=== PATIENT | female | born 1940 | race Two or more races ===

== ENCOUNTER 2019-04-07 06:16 | Inpatient (IN) | payer OTHER ==
[~2019-04-07] VITALS: Ht 152.4 cm; Wt 29.5 kg
[~2019-04-07 06:16] MED LIST: ACIDO FOLICO; ALENDRONATE SODI5 MG; FEOSOL1 TAB; FOLIC ACID1 MG; SULFATO FERROSO; SYNTHROID150 MCG PO; VIT D; VITAMIN D22000 UNIT
[2019-04-07] MEDS ORDERED: BREO ELLIPTA 21 EACH (06:36)
[2019-04-15] MEDS ORDERED: SIMETHICONE80 MG PO (16:38)
[2019-04-15] MEDS ORDERED: ACID CONTROLLER20 MG PO (16:39)
== END 2019-04-15 16:54 | disposition home or self-care (01) | DRG 194 ==
LOC: ER 06:16 → SEC-K 15:26 → SURH 15:26
PROVIDERS: ADMIT Student in an Organized Health Care Education/Training Program
PROC: BB24ZZZ Computerized Tomography (CT Scan) of Bilateral Lungs (ICD-10-PCS; principal; 2019-04-07)
PROC: 3E0F7GC Introduction of Other Therapeutic Substance into Respiratory Tract, Via Natural or Artificial Opening (ICD-10-PCS; 2019-04-07)
PROC: 4A033R1 Measurement of Arterial Saturation, Peripheral, Percutaneous Approach (ICD-10-PCS; 2019-04-07)
PROC: 8E0ZXY6 Isolation (ICD-10-PCS; 2019-04-08)
DX: J10.00 Influenza due to other identified influenza virus with unspecified type of pneumonia (principal); J44.1 Chronic obstructive pulmonary disease with (acute) exacerbation; B37.0 Candidal stomatitis; E03.8 Other specified hypothyroidism; I11.9 Hypertensive heart disease without heart failure; R13.11 Dysphagia, oral phase; F41.1 Generalized anxiety disorder; Z88.0 Allergy status to penicillin

== ENCOUNTER 2020-12-31 08:43 | Outpatient (CLI) | payer OTHER ==
[~2020-12-31 08:43] MED LIST changes: +ACID CONTROLLER20 MG PO; +BREO ELLIPTA 21 EACH; +SIMETHICONE80 MG PO
== END 2020-12-31 08:49 | disposition home or self-care (01) ==
LOC: SONOGRAMA 08:43
PROVIDERS: ATTEND Pathology Anatomic Pathology & Clinical Pathology
DX: E04.1 Nontoxic single thyroid nodule (principal)

== ENCOUNTER 2021-07-20 09:36 | Outpatient (CLI) | payer OTHER | END 2021-07-20 09:46 | disposition home or self-care (01) | LOC: RX STUDY 09:36 | PROVIDERS: ATTEND Internal Medicine | DX: R13.12 Dysphagia, oropharyngeal phase (principal); K63.4 Enteroptosis ==

== ENCOUNTER 2021-07-20 11:22 | Outpatient (CLI) | payer OTHER | END 2021-07-20 11:23 | disposition home or self-care (01) | LOC: LAB 11:22 | PROVIDERS: ATTEND Radiology Diagnostic Radiology | DX: Z00.8 Encounter for other general examination (principal) ==

== ENCOUNTER 2021-07-23 08:23 | Outpatient (CLI) | payer OTHER | END 2021-07-23 08:32 | disposition home or self-care (01) | LOC: TOM 08:23 | PROVIDERS: ATTEND Otolaryngology Plastic Surgery within the Head & Neck | DX: R13.19 Other dysphagia (principal) | CPT/HCPCS: 70492; Q9965 ==

== ENCOUNTER 2024-03-16 15:58 | Inpatient (IN) | payer OTHER ==
[~2024-03-16] VITALS: Ht 152.4 cm; Wt 29.9 kg
[2024-03-16] MEDS ORDERED: HYDROCHLOROTH12.5 M2 PO (16:48)
[2024-03-16] MEDS ORDERED: AMLODIPINE BESYL5 MG PO (16:57)
[2024-03-16] MEDS ORDERED: CARVEDILOL3.125 M1 PO (16:57)
[2024-03-16] MEDS ORDERED: LOSARTAN POTASS25 MG PO (16:57)
[2024-03-16] MEDS ORDERED: PANTOPRAZOLE SO40 MG PO (16:58)
[2024-03-16 17:45] LABS: HEMATOCRIT 33.4 % (36.0-45.00); HEMOGLOBIN 10.5 g/dL (12.0-15.00); MEAN CELL VOLUME 95.6 fL (80.00-100.00); MEAN CORPUSCULAR HGB CONC 31.3 g/dl (32.0-36.0); PLATELET COUNT 229 K/uL (150-450)
[2024-03-16 17:57] LABS: BLOOD UREA NITROGEN 8 mg/dL (7-18); BUN CREA RATIO 22 (7.0-25.0); CALCIUM 9.2 mg/dL (8.5-10.1); CHLORIDE 93 mmol/L (98-107); CREATININE SERUM 0.36 mg/dL (0.55-1.02); GFR 171.73; GLUCOSE FASTING 103 mg/dL (65-100); OSMOLALITY SERUM 274 MOSM/KG (275-295); POTASSIUM 4.05 mEq/L (3.5-5.1); SODIUM 138 mmol/L (136-145)
[2024-03-16 18:09] LABS: URINE APPEARANCE Clear; URINE BILIRRUBIN Negative (NEGATIVE); URINE BLOOD Negative; URINE COLOR Yellow; URINE GLUCOSE Negative (NEGATIVE); URINE KETONE Negative (NEGATIVE); URINE LEUKOCYTE Negative; URINE NITRATE Negative; URINE PROTEIN 30 (NEGATIVE)
[2024-03-16 18:13] LABS: URINE BACTERIA 133.5 uL (0.0-1933); URINE EPITHELIAL CELLS 25.9 uL (0.0-38.8); URINE RBC 90.5 uL (0.0-20.8); URINE WBC 16.9 uL (0.0-23.2)
[2024-03-16 18:20] LABS: CARBON DIOXIDE 50 mEq/L (21-32)
[2024-03-16 21:33] LABS: ABG PH 7.387 (7.35-7.45); ABG PO2 41.9 mmHg (80-100); ABG pCO2 71.6 mmHg (35-45); BASE EXCESS 13.4 mmol/l; SaO2 78.7 %
[2024-03-16 21:34] LABS: BICARBONATE 42.1 mmol/l (23-25); Tco2 44.3 mmol/l; allen test SATISFACTORY; puncture site CAPILAR
[2024-03-16 21:35] LABS: o2 21 %
[2024-03-16] MEDS ORDERED: levoFLOXacin IN DEXTROSE 5 % 150 ML IV SCH (23:36)
[2024-03-16] MEDS ORDERED: BUDESONIDE 0.5 MG/2 ML AMPUL.NEB IH SCH (23:37)
[2024-03-16] MEDS ORDERED: ONDANSETRON HCL 4 MG in 0.9 % SODIUM CHLORIDE 50 ML IV PRN (23:45)
[2024-03-16] MEDS ORDERED: ACETAMINOPHEN 500 MG GEL..CAP PO PRN (23:45)
[2024-03-17] MEDS ORDERED: levoFLOXacin IN DEXTROSE 5 % 5 MG/ML PIGGYBAG IV ONE ×2 (00:15→16:42)
[2024-03-17] MEDS ORDERED: IPRATROPIUM BROMIDE 0.5 MG/2.5 ML AMPUL.NEB IH ONE ×2 (00:20→08:41)
[2024-03-17] MEDS ORDERED: IPRATROPIUM BROMIDE 0.5 MG/2.5 ML AMPUL.NEB IH SCH (01:00)
[2024-03-17 01:15] LABS: INR 1.09; PARTIAL THROMBOPLASTIN TIME 28.2 SECONDS (22.0-34.0); PROTHROMBIN TIME 11.4 SECONDS (9.0-11.5)
[2024-03-17 01:53] LABS: ABG PH 7.387 (7.35-7.45); ABG PO2 93.6 mmHg (80-100); BASE EXCESS 15.3 mmol/l; BICARBONATE 44.6 mmol/l (23-25); SaO2 97.5 %; Tco2 46.9 mmol/l
[2024-03-17 03:15] LABS: ABG pCO2 75.7 mmHg (35-45); o2 30 %
[2024-03-17 03:16] LABS: allen test SATISFACTORY; puncture site RADIAL LEFT
[2024-03-17] MEDS ORDERED: LEVOTHYROXINE SODIUM 75 MCG TABLET PO SCH (06:00)
[2024-03-17] MEDS ORDERED: BUDESONIDE 0.5 MG/2 ML AMPUL.NEB IH ONE (08:41)
[2024-03-17] MEDS ORDERED: CHLORHEXIDINE GLUCONATE 120 ML BOTTLE TOP ONE (08:53)
[2024-03-17] MEDS ORDERED: FAMOTIDINE/PF 20 MG in 0.9 % SODIUM CHLORIDE 8 ML IV PUSH SCH (09:00)
[2024-03-17] MEDS ORDERED: ENOXAPARIN SODIUM 40 MG/0.4 ML SYRINGE SUBCUTANEO SCH (09:00)
[2024-03-17] MEDS ORDERED: IRON FUM,PS/FOLIC/BCOMP,C NO.9 1 CAP CAPSULE PO SCH (09:00)
[2024-03-17 09:14] LABS: ABG PH 7.435 (7.35-7.45); ABG PO2 80.9 mmHg (80-100); ABG pCO2 59.1 mmHg (35-45); BASE EXCESS 11.8 mmol/l; BICARBONATE 38.8 mmol/l (23-25); SaO2 96.6 %
[2024-03-17 09:15] LABS: Tco2 10.6 mmol/l
[2024-03-17 09:16] LABS: allen test SATISFACTORY; o2 30 %; puncture site RADIAL RIGHT
[2024-03-17] MEDS ORDERED: AMLODIPINE BESYLATE 5 MG TABLET PO SCH ×2 (09:42→21:00)
[2024-03-17] MEDS ORDERED: CARVEDILOL 3.125 MG TABLET PO SCH (09:43)
[2024-03-17] MEDS ORDERED: HYDROCHLOROTHIAZIDE 12.5 MG CAPSULE PO SCH (09:44)
[2024-03-17] MEDS ORDERED: LOSARTAN POTASSIUM 25 MG TABLET PO SCH (09:45)
[2024-03-17] MEDS ORDERED: LOSARTAN POTASSIUM 50 MG TABLET PO SCH (17:00)
[2024-03-17] MEDS ORDERED: levoFLOXacin IN DEXTROSE 5 % 150 ML IV SCH (17:00)
[2024-03-18 06:35] LABS: HEMATOCRIT 31.1 % (36.0-45.00); HEMOGLOBIN 10.5 g/dL (12.0-15.00); MEAN CELL VOLUME 88.3 fL (80.00-100.00); MEAN CORPUSCULAR HEMOGLOBIN 29.9 pg (27.00-32.0); MEAN CORPUSCULAR HGB CONC 33.8 g/dl (32.0-36.0); PLATELET COUNT 221 K/uL (150-450); RED BLOOD COUNT 3.52 M/uL (4.00-6.00); RED CELL DISTRIBUTION WIDTH 12.9 % (11.5-14.5)
[2024-03-18 07:00] LABS: ALBUMIN 3.3 gm/dL (3.4-5.0); BILIRUBIN TOTAL 0.7 mg/dL (0.3-1.2); CALCIUM 7.6 mg/dL (8.5-10.1); CREATININE SERUM 0.4 mg/dL (0.55-1.02); GFR 152.07; GLOBULINA 4.6 G/DL (2.4-3.5); MAGNESIUM 1.5 mg/dL (1.8-2.4); PHOSPHOROUS 2.1 mg/dL (2.5-4.9); POTASSIUM 3.28 mEq/L (3.5-5.1); TOTAL PROTEIN 7.9 gm/dL (6.4-8.2)
[2024-03-18 09:30] LABS: ABG PH 7.452 (7.35-7.45); ABG PO2 114.4 mmHg (80-100); ABG pCO2 49.8 mmHg (35-45)
[2024-03-18 09:31] LABS: BASE EXCESS 8.5 mmol/l; SaO2 98.8 %; Tco2 35.5 mmol/l; allen test NO SATISFACTORY; o2 30 %; puncture site RADIAL LEFT
[2024-03-18] MEDS ORDERED: MAGNESIUM SULFATE IN WATER 4GM/50ML PIGGYBAG IV STA (09:51)
[2024-03-18] MEDS ORDERED: SODIUM PHOS,M-BASIC-D-BASIC 3 MMOL/ML VIAL IV SCH ×2 (09:52→13:00)
[2024-03-18] MEDS ORDERED: POTASSIUM BICARBONATE/CIT AC 25 MEQ TABLET.EFF PO SCH (09:53)
[2024-03-18] MEDS ORDERED: POTASSIUM CHLORIDE IN WATER 100 ML IV ONE (10:00)
[2024-03-18] MEDS ORDERED: 0.9 % SODIUM CHLORIDE 100 ML IV SCH (10:00)
[2024-03-18] MEDS ORDERED: MAGNESIUM SULFATE IN WATER 4 GM/100 ML PIGGYBACK IV STA (10:03)
[2024-03-18] MEDS ORDERED: CARVEDILOL 6.25 MG TABLET PO SCH (17:00)
[2024-03-19 05:33] LABS: ABG PH 7.328 (7.35-7.45)
[2024-03-19 05:34] LABS: ABG PO2 117.8 mmHg (80-100); ABG pCO2 66.3 mmHg (35-45); BASE EXCESS 5.6 mmol/l; SaO2 98.3 %; Tco2 36.1 mmol/l
[2024-03-19 05:35] LABS: allen test SATISFACTORY; o2 50 %; puncture site RADIAL RIGHT
[2024-03-19 07:11] LABS: HEMATOCRIT 26.6 % (36.0-45.00); HEMOGLOBIN 9.1 g/dL (12.0-15.00); MEAN CELL VOLUME 89.7 fL (80.00-100.00); MEAN CORPUSCULAR HEMOGLOBIN 30.6 pg (27.00-32.0); MEAN CORPUSCULAR HGB CONC 34.1 g/dl (32.0-36.0); PLATELET COUNT 175 K/uL (150-450); RED BLOOD COUNT 2.97 M/uL (4.00-6.00); RED CELL DISTRIBUTION WIDTH 12.7 % (11.5-14.5)
[2024-03-19 07:39] LABS: ALBUMIN 2.4 gm/dL (3.4-5.0); ALKALINE PHOSPHATASE 48 U/L (50-136); ALT/SGPT 17 U/L (12-78); AST/SGOT 29 U/L (15-37); BILIRUBIN TOTAL 0.41 mg/dL (0.3-1.2); BLOOD UREA NITROGEN 9 mg/dL (7-18); CARBON DIOXIDE 33 mEq/L (21-32); CHLORIDE 93 mmol/L (98-107); GLOBULINA 3.1 G/DL (2.4-3.5); GLUCOSE FASTING 76 mg/dL (65-100); OSMOLALITY SERUM 262 MOSM/KG (275-295); SODIUM 132 mmol/L (136-145); TOTAL PROTEIN 5.5 gm/dL (6.4-8.2)
[2024-03-19 08:07] LABS: ANION GAP 9 (10.0-20.0); BUN CREA RATIO 60 (7.0-25.0); GFR 471.66
[2024-03-19 08:08] LABS: CALCIUM 5.8 mg/dL (8.5-10.1); CREATININE SERUM < 0.15 mg/dL (0.55-1.02); PHOSPHOROUS 8.3 mg/dL (2.5-4.9)
[2024-03-19 08:09] LABS: POTASSIUM 2.63 mEq/L (3.5-5.1)
[2024-03-19] MEDS ORDERED: levoFLOXacin IN DEXTROSE 5 % 150 ML IV SCH (09:00)
[2024-03-19] MEDS ORDERED: POTASSIUM BICARBONATE/CIT AC 25 MEQ TABLET.EFF PO SCH (10:05)
[2024-03-19] MEDS ORDERED: POTASSIUM CHLORIDE IN WATER 100 ML IV NR ×2 (10:15→17:00)
[2024-03-19] MEDS ORDERED: POTASSIUM CHLORIDE IN WATER 40 MEQ/100 ML PIGGYBAG IV ONE (10:44)
[2024-03-19 12:18] LABS: GFR 338.41
[2024-03-19 12:19] LABS: CALCIUM 6.5 mg/dL (8.5-10.1); CREATININE SERUM 0.2 mg/dL (0.55-1.02); POTASSIUM 2.69 mEq/L (3.5-5.1)
[2024-03-19] MEDS ORDERED: CALCIUM GLUCONATE 100 MG/ML VIAL IV ONE (13:00)
[2024-03-19] MEDS ORDERED: IPRATROPIUM BROMIDE 0.5 MG/2.5 ML AMPUL.NEB IH ONE (16:47)
[2024-03-19] MEDS ORDERED: AMINO ACIDS 4.25 %/DEXTROSE 5% 1,000 ML PERIFERAL SCH (17:00)
[2024-03-19 17:19] LABS: ANION GAP 6 (10.0-20.0); BLOOD UREA NITROGEN 6 mg/dL (7-18); CALCIUM 7.2 mg/dL (8.5-10.1); CARBON DIOXIDE 34 mEq/L (21-32); CHLORIDE 94 mmol/L (98-107); CHOL HDL RATIO 2.3 (0-5.0); CHOLESTEROL 164 mg/dL (0-200); GLUCOSE FASTING 75 mg/dL (65-100); HDL 72 mg/dl (40-60); LDL 74 mg/dl (0-130); OSMOLALITY SERUM 252 MOSM/KG (275-295); SODIUM 127 mmol/L (136-145); TRIGLYCERIDES 88 mg/dL (0-150); VLDL 17 (0-39)
[2024-03-19 17:36] LABS: BUN CREA RATIO 40 (7.0-25.0); GFR 471.66
[2024-03-19 17:39] LABS: POTASSIUM 7.03 mEq/L (3.5-5.1)
[2024-03-19 18:31] LABS: CREATININE SERUM < 0.15 mg/dL (0.55-1.02)
[2024-03-19 18:38] LABS: ANION GAP 8 (10.0-20.0); BLOOD UREA NITROGEN 6 mg/dL (7-18); CARBON DIOXIDE 34 mEq/L (21-32); CHLORIDE 92 mmol/L (98-107); GLUCOSE FASTING 75 mg/dL (65-100); OSMOLALITY SERUM 257 MOSM/KG (275-295); POTASSIUM 3.72 mEq/L (3.5-5.1); SODIUM 130 mmol/L (136-145)
[2024-03-19 18:39] LABS: BUN CREA RATIO 40 (7.0-25.0); CREATININE SERUM < 0.15 mg/dL (0.55-1.02); GFR 471.66
[2024-03-19] MEDS ORDERED: FAT EMULSIONS 250 ML IV SCH (21:00)
[2024-03-20 06:37] LABS: HEMATOCRIT 26.6 % (36.0-45.00); MEAN CELL VOLUME 88.4 fL (80.00-100.00); MEAN CORPUSCULAR HGB CONC 33.9 g/dl (32.0-36.0); PLATELET COUNT 183 K/uL (150-450); RED BLOOD COUNT 3.01 M/uL (4.00-6.00); RED CELL DISTRIBUTION WIDTH 13.1 % (11.5-14.5)
[2024-03-20 07:27] LABS: ALBUMIN 2.3 gm/dL (3.4-5.0); ALKALINE PHOSPHATASE 43 U/L (50-136); ALT/SGPT 18 U/L (12-78); ANION GAP 5 (10.0-20.0); AST/SGOT 27 U/L (15-37); BILIRUBIN TOTAL 0.24 mg/dL (0.3-1.2); BLOOD UREA NITROGEN 14 mg/dL (7-18); CARBON DIOXIDE 35 mEq/L (21-32); CHLORIDE 90 mmol/L (98-107); GLOBULINA 3.1 G/DL (2.4-3.5); GLUCOSE FASTING 114 mg/dL (65-100); OSMOLALITY SERUM 257 MOSM/KG (275-295); POTASSIUM 3.08 mEq/L (3.5-5.1); SODIUM 127 mmol/L (136-145); TOTAL PROTEIN 5.4 gm/dL (6.4-8.2)
[2024-03-20 07:43] LABS: BUN CREA RATIO 93 (7.0-25.0); CREATININE SERUM < 0.15 mg/dL (0.55-1.02); GFR 471.66
[2024-03-20 07:44] LABS: CALCIUM 6.1 mg/dL (8.5-10.1)
[2024-03-20] MEDS ORDERED: POTASSIUM CHLORIDE IN WATER 40 MEQ/100 ML PIGGYBAG IV ONE (08:00)
[2024-03-20] MEDS ORDERED: CALCIUM GLUCONATE 100 MG/ML VIAL IV ONE (08:00)
[2024-03-20] MEDS ORDERED: CALCIUM GLUCONATE 100 MG/ML VIAL IV NR (10:08)
[2024-03-20] MEDS ORDERED: POTASSIUM CHLORIDE IN WATER 40 MEQ/100 ML PIGGYBAG IV NR (10:09)
[2024-03-20] MEDS ORDERED: MAGNESIUM SULFATE IN WATER 50 ML IV NR (11:11)
[2024-03-20 11:16] LABS: ABG PH 7.306 (7.35-7.45); ABG PO2 175.9 mmHg (80-100); BASE EXCESS 2.2 mmol/l; BICARBONATE 30.3 mmol/l (23-25); SaO2 99.4 %; Tco2 32.2 mmol/l; allen test SATISFACTORY; o2 36 %; puncture site RADIAL LEFT
[2024-03-20] MEDS ORDERED: POTASSIUM PHOS,M-BASIC-D-BASIC 3 MM/ML VIAL IV SCH (12:00)
[2024-03-21 07:12] LABS: ALKALINE PHOSPHATASE 39 U/L (50-136); ALT/SGPT 16 U/L (12-78); ANION GAP 5 (10.0-20.0); AST/SGOT 19 U/L (15-37); BILIRUBIN TOTAL 0.19 mg/dL (0.3-1.2); BLOOD UREA NITROGEN 14 mg/dL (7-18); CARBON DIOXIDE 32 mEq/L (21-32); CHLORIDE 96 mmol/L (98-107); GLOBULINA 2.9 G/DL (2.4-3.5); GLUCOSE FASTING 104 mg/dL (65-100); OSMOLALITY SERUM 260 MOSM/KG (275-295); POTASSIUM 4.39 mEq/L (3.5-5.1); SODIUM 129 mmol/L (136-145); TOTAL PROTEIN 4.9 gm/dL (6.4-8.2)
[2024-03-21 07:22] LABS: BUN CREA RATIO 93 (7.0-25.0); GFR 471.66
[2024-03-21 07:23] LABS: CREATININE SERUM < 0.15 mg/dL (0.55-1.02)
[2024-03-21 07:25] LABS: PHOSPHOROUS 1.1 mg/dL (2.5-4.9)
[2024-03-21 07:29] LABS: HEMOGLOBIN 9.2 g/dL (12.0-15.00); MEAN CELL VOLUME 90.8 fL (80.00-100.00); MEAN CORPUSCULAR HEMOGLOBIN 30.8 pg (27.00-32.0); PLATELET COUNT 172 K/uL (150-450); RED BLOOD COUNT 2.97 M/uL (4.00-6.00); RED CELL DISTRIBUTION WIDTH 12.8 % (11.5-14.5)
[2024-03-21] MEDS ORDERED: levoFLOXacin IN DEXTROSE 5 % 5 MG/ML PIGGYBAG IV NR (09:00)
[2024-03-21] MEDS ORDERED: POTASSIUM PHOS,M-BASIC-D-BASIC 15 MM in 0.9 % SODIUM CHLORIDE 250 ML IV SCH (09:00)
[2024-03-21] MEDS ORDERED: CALCIUM GLUCONATE 100 MG/ML VIAL IV NR (09:58)
[2024-03-21] MEDS ORDERED: LACTULOSE 20 G/30 ML BLIST.PACK PO NR (11:45)
[2024-03-21] MEDS ORDERED: MINERAL OIL 30 ML BLIST.PACK PO NR (11:45)
[2024-03-21] MEDS ORDERED: MAGNESIUM HYDROXIDE 30 ML BLIST.PACK PO NR (11:45)
[2024-03-21] MEDS ORDERED: MAGNESIUM SULFATE IN WATER 50 ML IV NR (12:00)
[2024-03-22 06:59] LABS: ALBUMIN 2.1 gm/dL (3.4-5.0); ALKALINE PHOSPHATASE 42 U/L (50-136); ALT/SGPT 16 U/L (12-78); ANION GAP 5 (10.0-20.0); AST/SGOT 18 U/L (15-37); BILIRUBIN TOTAL 0.14 mg/dL (0.3-1.2); BLOOD UREA NITROGEN 7 mg/dL (7-18); CARBON DIOXIDE 33 mEq/L (21-32); CHLORIDE 99 mmol/L (98-107); GLOBULINA 2.8 G/DL (2.4-3.5); GLUCOSE FASTING 88 mg/dL (65-100); OSMOLALITY SERUM 262 MOSM/KG (275-295); PHOSPHOROUS 2.3 mg/dL (2.5-4.9); POTASSIUM 4.82 mEq/L (3.5-5.1); SODIUM 132 mmol/L (136-145); TOTAL PROTEIN 4.9 gm/dL (6.4-8.2)
[2024-03-22 07:13] LABS: BUN CREA RATIO 46 (7.0-25.0); CALCIUM 6.2 mg/dL (8.5-10.1); CREATININE SERUM < 0.15 mg/dL (0.55-1.02); GFR 471.66
[2024-03-22 07:24] LABS: HEMATOCRIT 26.8 % (36.0-45.00); MEAN CORPUSCULAR HEMOGLOBIN 30.6 pg (27.00-32.0); MEAN CORPUSCULAR HGB CONC 33.6 g/dl (32.0-36.0); PLATELET COUNT 166 K/uL (150-450); RED BLOOD COUNT 2.94 M/uL (4.00-6.00); RED CELL DISTRIBUTION WIDTH 12.6 % (11.5-14.5)
[2024-03-22] MEDS ORDERED: ENOXAPARIN SODIUM 30 MG/0.3 ML SYRINGE SUBCUTANEO SCH (09:00)
[2024-03-22] MEDS ORDERED: CALCIUM GLUCONATE 100 MG/ML VIAL IV NR (12:24)
[2024-03-22] MEDS ORDERED: SOD PHOSPHATE,MONOBASIC-DIBAS 3 MMOL/ML VIAL IV NR (12:27)
[2024-03-22 12:43] LABS: ABG PO2 68.7 mmHg (80-100); ABG pCO2 60.2 mmHg (35-45); BASE EXCESS 4.9 mmol/l; BICARBONATE 32.5 mmol/l (23-25); SaO2 92.7 %; Tco2 34.3 mmol/l
[2024-03-22 12:44] LABS: allen test SATISFACTORY; o2 32 %; puncture site RADIAL RIGHT
[2024-03-22] MEDS ORDERED: CALCIUM CARBONATE/VITAMIN D3 1 TAB TABLET PO SCH (13:00)
[2024-03-22] MEDS ORDERED: ENALAPRILAT DIHYDRATE 1.25 MG/ML VIAL IV PRN (21:00)
[2024-03-23 08:55] LABS: ALBUMIN 2.2 gm/dL (3.4-5.0); ALKALINE PHOSPHATASE 50 U/L (50-136); ALT/SGPT 16 U/L (12-78); AST/SGOT 19 U/L (15-37); BILIRUBIN TOTAL 0.27 mg/dL (0.3-1.2); BLOOD UREA NITROGEN 2 mg/dL (7-18); CALCIUM 6.7 mg/dL (8.5-10.1); CHLORIDE 95 mmol/L (98-107); GLUCOSE FASTING 82 mg/dL (65-100); OSMOLALITY SERUM 264 MOSM/KG (275-295); POTASSIUM 4.07 mEq/L (3.5-5.1); SODIUM 134 mmol/L (136-145); TOTAL PROTEIN 5.2 gm/dL (6.4-8.2)
[2024-03-23] MEDS ORDERED: PANTOPRAZOLE SODIUM 40 MG TABLET.DR PO SCH (09:00)
[2024-03-23 09:02] LABS: ANION GAP 3 (10.0-20.0); BUN CREA RATIO 13 (7.0-25.0); GFR 471.66
[2024-03-23 09:03] LABS: CARBON DIOXIDE 40 mEq/L (21-32)
[2024-03-23 09:04] LABS: CREATININE SERUM < 0.15 mg/dL (0.55-1.02); PHOSPHOROUS 1.7 mg/dL (2.5-4.9)
[2024-03-23] MEDS ORDERED: ACETAZOLAMIDE SODIUM 250 MG in DEXTROSE 5 % IN WATER 100 ML IV SCH (12:30)
[2024-03-23] MEDS ORDERED: POTASSIUM PHOS,M-BASIC-D-BASIC 3 MM/ML VIAL IV SCH (13:00)
[2024-03-23] MEDS ORDERED: CALCIUM GLUCONATE 100 MG/ML VIAL IV ONE (13:45)
[2024-03-23] MEDS ORDERED: ACETAZOLAMIDE SODIUM 500 MG VIAL IV SCH (14:00)
[2024-03-23] MEDS ORDERED: MAGNESIUM CHLORIDE 70 MG TABLET.DR PO SCH (17:00)
[2024-03-23] MEDS ORDERED: NAPH,MB-DB/K PH,MBDB 1 PKT PACKET PO SCH (17:00)
[2024-03-23] MEDS ORDERED: CALCIUM CARBONATE/VITAMIN D3 1 TAB TABLET PO SCH (17:00)
[2024-03-25 09:30] LABS: HEMATOCRIT 27.7 % (36.0-45.00); MEAN CELL VOLUME 91.7 fL (80.00-100.00); MEAN CORPUSCULAR HGB CONC 32.3 g/dl (32.0-36.0); PLATELET COUNT 247 K/uL (150-450); RED BLOOD COUNT 3.02 M/uL (4.00-6.00)
[2024-03-25 09:34] LABS: HEMOGLOBIN 8.9 g/dL (12.0-15.00); MEAN CORPUSCULAR HEMOGLOBIN 29.4 pg (27.00-32.0)
[2024-03-25 09:49] LABS: ALBUMIN 2.4 gm/dL (3.4-5.0); BILIRUBIN TOTAL 0.39 mg/dL (0.3-1.2); CALCIUM 7.6 mg/dL (8.5-10.1); GLOBULINA 3.2 G/DL (2.4-3.5); MAGNESIUM 1.8 mg/dL (1.8-2.4); POTASSIUM 4.61 mEq/L (3.5-5.1); TOTAL PROTEIN 5.6 gm/dL (6.4-8.2)
[2024-03-25 10:30] LABS: CREATININE SERUM 0.24 mg/dL (0.55-1.02); GFR 274.18
[2024-03-25 12:52] LABS: ABG pCO2 53.7 mmHg (35-45); BASE EXCESS -1.5 mmol/l; BICARBONATE 25.8 mmol/l (23-25); SaO2 87.9 %; Tco2 27.5 mmol/l; allen test SATISFACTORY; o2 21 %; puncture site RADIAL RIGHT
[2024-03-25] MEDS ORDERED: SOD PHOSPHATE,MONOBASIC-DIBAS 3 MMOL/ML VIAL IV SCH ×2 (13:00→17:00)
[2024-03-25] MEDS ORDERED: POTASSIUM PHOS,M-BASIC-D-BASIC 3 MM/ML VIAL IV SCH (21:00)
[2024-03-26 13:11] LABS: ABG PH 7.282 (7.35-7.45); ABG PO2 63.3 mmHg (80-100); BASE EXCESS -1.5 mmol/l; BICARBONATE 26.3 mmol/l (23-25); SaO2 88.4 %; Tco2 28.1 mmol/l
[2024-03-26 13:13] LABS: allen test SATISFACTORY; o2 21 %; puncture site RADIAL RIGHT
[2024-03-27 07:58] LABS: HEMATOCRIT 25.9 % (36.0-45.00); MEAN CELL VOLUME 92.6 fL (80.00-100.00); MEAN CORPUSCULAR HGB CONC 33.4 g/dl (32.0-36.0); PLATELET COUNT 274 K/uL (150-450); RED BLOOD COUNT 2.79 M/uL (4.00-6.00); RED CELL DISTRIBUTION WIDTH 12.6 % (11.5-14.5)
[2024-03-27 08:02] LABS: HEMOGLOBIN 8.6 g/dL (12.0-15.00); MEAN CORPUSCULAR HEMOGLOBIN 30.8 pg (27.00-32.0)
[2024-03-27 08:29] LABS: ALBUMIN 2.4 gm/dL (3.4-5.0); BILIRUBIN TOTAL 0.23 mg/dL (0.3-1.2); CALCIUM 7.9 mg/dL (8.5-10.1); GFR 359.04; GLOBULINA 3.5 G/DL (2.4-3.5); MAGNESIUM 1.8 mg/dL (1.8-2.4); PHOSPHOROUS 2.2 mg/dL (2.5-4.9); POTASSIUM 4.47 mEq/L (3.5-5.1); TOTAL PROTEIN 5.9 gm/dL (6.4-8.2)
[2024-03-27 08:31] LABS: CREATININE SERUM 0.19 mg/dL (0.55-1.02)
[2024-03-27] MEDS ORDERED: MINERAL OIL 30 ML BLIST.PACK PO STA (12:21)
[2024-03-27] MEDS ORDERED: MAGNESIUM HYDROXIDE 30 ML BLIST.PACK PO STA (12:21)
[2024-03-27] MEDS ORDERED: INTEGRA PLUS C1 EACH PO (12:39)
[2024-03-27] MEDS ORDERED: PHOS-NAK PACKE1 EACH PO (12:40)
[2024-03-27] MEDS ORDERED: MAGNESIUM CHLOR70 MG PO (12:40)
[2024-03-27] MEDS ORDERED: CALCIUM 500-VI1 EAC6 PO (12:40)
[2024-03-27] MEDS ORDERED: IPRATROPIU0.2 MG/1 M IH (12:40)
[2024-03-27] MEDS ORDERED: PANTOPRAZOLE SO40 MG PO (12:41)
[2024-03-27] MEDS ORDERED: COLACE100 MG PO (12:41)
[2024-03-27] MEDS ORDERED: LEVOTHYROXINE75 MCG PO (12:41)
[2024-03-27] MEDS ORDERED: DOCUSATE SODIUM 100MG CAP PO SCH (17:00)
== END 2024-03-27 20:42 | disposition home or self-care (01) | DRG 190 ==
LOC: ER 15:59 → ICU-2 23:49 → ICU 03-19 22:09 → SURH 03-23 06:43
PROVIDERS: General Practice; ADMIT Internal Medicine; ATTEND Internal Medicine
PROC: BW28ZZZ Computerized Tomography (CT Scan) of Head (ICD-10-PCS; 2024-03-16)
PROC: BW24ZZZ Computerized Tomography (CT Scan) of Chest and Abdomen (ICD-10-PCS; 2024-03-16)
PROC: 5A09557 Assistance with Respiratory Ventilation, Greater than 96 Consecutive Hours, Continuous Positive Airway Pressure (ICD-10-PCS; principal; 2024-03-17)
PROC: B54DZZZ Ultrasonography of Bilateral Lower Extremity Veins (ICD-10-PCS; 2024-03-17)
PROC: B24BYZZ Ultrasonography of Heart with Aorta using Other Contrast (ICD-10-PCS; 2024-03-17)
PROC: 02HV33Z Insertion of Infusion Device into Superior Vena Cava, Percutaneous Approach (ICD-10-PCS; 2024-03-18)
DX: J44.1 Chronic obstructive pulmonary disease with (acute) exacerbation (principal); J18.9 Pneumonia, unspecified organism; J96.92 Respiratory failure, unspecified with hypercapnia; E87.29 Other acidosis; E87.1 Hypo-osmolality and hyponatremia; J90 Pleural effusion, not elsewhere classified; J47.9 Bronchiectasis, uncomplicated; D72.829 Elevated white blood cell count, unspecified; D64.9 Anemia, unspecified; E03.9 Hypothyroidism, unspecified; G93.89 Other specified disorders of brain; Z66 Do not resuscitate; R60.0 Localized edema